=== PATIENT | male | born 1960 | race Native Hawaiian/Other Pacific Islander ===

== ENCOUNTER → 2017-09-26 | Outpatient (CLI) | payer MEDICARE ==
--- NOTE | 2017-09-26 15:45 | XR ---
EXAMINATION TYPE: XR shoulder complete RT DATE OF EXAM: 09/26/2017 CLINICAL HISTORY: Right shoulder pain after injury. TECHNIQUE: Three views of the right shoulder are obtained. COMPARISON: None. FINDINGS: There is no acute fracture/dislocation evident in the right shoulder. The acromioclavicul ar and glenohumeral joint spaces appear within normal limits. The visualized ribs are intact and unr emarkable. IMPRESSION: There is no acute fracture or dislocation in the right shoulder.
== END | disposition home or self-care (01) ==
LOC: RADXRYALE 14:49
PROVIDERS: ATTEND Physician Assistant Medical
DX: M25.511 Pain in right shoulder (principal)

== ENCOUNTER 2019-02-25 12:25 | Observation (INO) | payer MEDICARE, OTHER ==
[2019-02-25] MEDS ORDERED: NITROGLYCERIN OINT 1 INCH/GM PACKET TOPICAL STA (12:32)
[2019-02-25] MEDS ORDERED: HEPARIN SODIUM,PORCINE 5,000 UNIT/ML 1 ML VIAL IV STA (12:32)
--- NOTE | 2019-02-25 12:40 | ED ---
Chest Pain HPI - General Stated Complaint: CHEST PAIN Time Seen by Provider: 02/25/19 12:25 Source: patient, EMS, RN notes reviewed, old records reviewed Mode of arrival: EMS Limitations: no limitations - History of Present Illness Initial Comments: This is a 58-year-old male with a history of prior heart disease with a stent who over the past 2 weeks is been having intermittent episodes of discomfort and numbness to his left arm who had the onset at 10:30 this morning of retrosternal chest pain and pressure tightness he also described it as 5/10 severity he also has some numbness and tingling going down his left arm and to his left neck and jaw area. He was seen in his doctor's office and was given 2 nitroglycerin there without much relief EMS was called he was given 324 aspirin as well as additional nitroglycerin with some improvement. He has some shortness of breath some sweating no nausea vomiting or other symptoms. No recent illnesses no cough or phlegm production. Patient is a smoker he states he is down to about one half pack per day he is trying to quit. MD Complaint: chest pain - Related Data Home Medications Medication Instructions Recorded Confirmed Atorvastatin [Lipitor] 40 mg PO HS 11/08/17 02/25/19 Aspirin EC [Ecotrin Low Dose] 81 mg PO HS 02/25/19 02/25/19 Vitamin E 1,000 unit PO HS 02/25/19 02/25/19 Allergies Allergy/AdvReac Type Severity Reaction Status Date / Time No Known Allergies Allergy Verified 02/25/19 13:03 Review of Systems ROS Statement: Those systems with pertinent positive or pertinent negative responses have been documented in the HPI. ROS Other: All systems not noted in ROS Statement are negative. Past Medical History Past Medical History: Coronary Artery Disease (CAD), Hyperlipidemia, Myocardial Infarction (MD) Additional Past Medical History / Comment(s): Recent sinusitis tx with ABX-has one more dose to go, 2011 fell out of bed and had cervical spinal cord injury/closed head injury with temporary paralysis-has had neuropathy neck to toes since and memory issues especially when ill. Last Myocardial Infarction Date:: 2012 History of Any Multi-Drug Resistant Organisms: None Reported Past Surgical History: Back Surgery, Heart Catheterization With Stent Additional Past Surgical History / Comment(s): Cervical fusion, PCI/stent, 2014 colonoscopy with polypectomy, L hand pinky finger with pin, cyst removed from back of neck. Past Anesthesia/Blood Transfusion Reactions: No Reported Reaction Date of Last Stent Placement:: 2012 Past Psychological History: Anxiety, Depression Smoking Status: Former smoker - Past Family History Mother Family Medical History: Diabetes Mellitus Additional Family Medical History / Comment(s): Mother at the age of 75yrs. Father Family Medical History: Myocardial Infarction (MD) Additional Family Medical History / Comment(s): Father of a MD at the age of 75yrs. General Exam - General Exam Comments Initial Comments: This is a well-developed well-nourished awake alert oriented times 3 male Limitations: no limitations General appearance: alert, anxious Head exam: Present: atraumatic, normocephalic, normal inspection Eye exam: Present: normal appearance, PERRL, EOMI. Absent: scleral icterus, conjunctival injection, periorbital swelling ENT exam: Present: normal exam, mucous membranes moist Neck exam: Present: normal inspection. Absent: tenderness, meningismus, lympha denopathy Respiratory exam: Present: normal lung sounds bilaterally. Absent: respiratory distress, wheezes, rales, rhonchi, stridor Cardiovascular Exam: Present: normal rhythm, bradycardia, normal heart sounds. Absent: systolic murmur, diastolic murmur, rubs, gallop, clicks GI/Abdominal exam: Present: soft, normal bowel sounds. Absent: distended, tenderness, guarding, rebound, rigid Extremities exam: Present: normal inspection, full ROM, normal capillary refill. Absent: tenderness, pedal edema, joint swelling, calf tenderness Back exam: Present: normal inspection Neurological exam: Present: alert, oriented X3, CN II-XII intact Psychiatric exam: Present: normal affect, normal mood Skin exam: Present: warm, dry, intact, normal color. 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 Monitor showed a heart rate of 60 with a normal sinus rhythm no evidence of atrial or ventricular abnormal activity. Reevaluation #2: 02/25/19 14:23 Reevaluation patient on further chest discomfort since treatment was started. Is presently did discuss findings with her as well as with the patient. Chest Pain MDM - MDM Imaging was reviewed no evidence of acute findings. I did discuss findings the patient has regarding findings also with Dr. carrasco. Patient will be admitted for evaluation by cardiology the presentation is consistent with acute coronary syndrome/unstable angina. The case is discussed with Dr. Ghotra Critical Care Time Critical Care Time: Yes Critical Care Time: 32 minutes of critical care time which includes initial presentation with history physical labs x-rays multiple re-evaluations patient response to therapy this also did include discussed with paramedics about the patient and discussion with the admitting physician Dr. carrasco discussed with cardiology Dr. Ghotra review of old charting and documentation the above Disposition Clinical Impression: Acute coronary syndrome, Unstable angina pectoris, Chest pain Disposition: ADMITTED IP TO THIS HOSP Condition: Stable Referrals: Dean Payne DO [Primary Care Provider] - 1-2 days
[2019-02-25] MEDS ORDERED: HEPARIN SOD,PORK IN 0.45% NACL 25,000 UNIT in 0.45% NACL 1 250ML.BAG IV SCH (12:45)
[2019-02-25 12:54] LABS: Basophils # (A) 0.1 k/uL (0-0.2); Basophils % (A) 1 %; Eosinophils # (A) 0.3 k/uL (0-0.7); Eosinophils % (A) 3 %; HCT 48.2 % (39.0-53.0); Lymphocytes # (A) 2.9 k/uL (1.0-4.8); Lymphocytes % (A) 30 %; MCH 29.7 pg (25.0-35.0); MCHC 33.2 g/dL (31.0-37.0); MCV 89.4 fL (80.0-100.0); Mean Platelet Volume 6.5; Monocytes # (A) 0.6 k/uL (0-1.0); Monocytes % (A) 6 %; Neutrophils # (A) 5.7 k/uL (1.3-7.7); Neutrophils % (A) 59 %; Platelet Count 287 k/uL (150-450); RBC 5.39 m/uL (4.30-5.90); RDW 13.4 % (11.5-15.5); WBC 9.6 k/uL (3.8-10.6)
[2019-02-25] MEDS: SODIUM CHLORIDE 0.9% 500 ML 500 ML IV SCH (13:02)
[2019-02-25 13:09] LABS: Albumin 4.2 g/dL (3.5-5.0); Calcium 9.3 mg/dL (8.4-10.2); Magnesium 2.1 mg/dL (1.6-2.3); Potassium 4.7 mmol/L (3.5-5.1); Total Bilirubin 0.4 mg/dL (0.2-1.3); Total Protein 6.8 g/dL (6.3-8.2)
[2019-02-25 13:10] LABS: D-Dimer <0.17 mg/L FEU (<0.60); INR 0.9 (<1.2); Partial Thromboplastin Time 24.1 sec (22.0-30.0); Prothrombin Time 10.1 sec (9.0-12.0)
--- NOTE | 2019-02-25 13:13 | XR ---
EXAMINATION TYPE: XR chest 2V DATE OF EXAM: 02/25/2019 COMPARISON: 01/02/2012 INDICATION: Chest pain left arm tingling TECHNIQUE: Frontal and lateral views of the chest are obtained. FINDINGS: The heart size is normal. The pulmonary vasculature is normal. The lungs are clear. IMPRESSION: 1. No acute pulmonary process.
[2019-02-25] MEDS ORDERED: ACETAMINOPHEN TAB 325 MG TAB PO STA (14:18)
[2019-02-25] MEDS ORDERED: NITROGLYCERIN SL TABS 0.4 MG TAB SUBLINGUAL PRN (14:29)
--- NOTE | 2019-02-25 15:33 | P.HPIM ---
History of Present Illness Patient is a very pleasant 58-year-old gentleman came in with complaints of left arm tingling numbness started when he was sitting on the chair nonexertional followed by chest pain pressure-like sensation 5/10 in severity associated with diaphoresis and his pain radiating to the left side of the neck as well as jaw area. Patient had pericardial chest pain on the left side patient has associated lightheadedness and some shortness of breath to cut 2 nitroglycerin without any significant improvement in pain, pain lasted for about half an hour patient any fever chills patient had a Chest x-ray did not show any pneumonic process EKG showed some nonspecific ST-T wave changes in the precordial leads with some J-point elevation. Patient's troponin is negative. Sinus rhythm on EKG. Patient does have history of coronary artery disease had stenting in 2014 and patient has another vessel that was blocked about 65% and patient is on aspirin and atorvastatin. Patient chest pain is nonpleuritic in nature not associated with food Patient can use to smoke half a pack a day trying to quit smoking Review of Systems REVIEW OF SYSTEMS: CONSTITUTIONAL: No fever, no malaise, no fatigue. HEENT: No recent visual problems or hearing problems. Denied any sore throat. CARDIOVASCULAR: No orthopnea, PND, no palpitations, no syncope. PULMONARY: No shortness of breath, no cough, no hemoptysis. GASTROINTESTINAL: No diarrhea, no nausea, no vomiting, no abdominal pain. NEUROLOGICAL: No headaches, no weakness, no numbness. HEMATOLOGICAL: Denies any bleeding or petechiae. GENITOURINARY: Denies any burning micturition, frequency, or urgency. MUSCULOSKELETAL/RHEUMATOLOGICAL: Denies any joint pain, swelling, or any muscle pain. ENDOCRINE: Denies any polyuria or polydipsia. The rest of the 14-point review of systems is negative. Past Medical History Past Medical History: Coronary Artery Disease (CAD), Hyperlipidemia, Myocardial Infarction ([place]) Additional Past Medical History / Comment(s): 2011 fell out of bed and had cervical spinal cord injury/closed head injury with temporary paralysis-has had generalized neuropathy since and memory issues especially when ill, chronic cervical pain, occasional back pain, sinusitis. Last Myocardial Infarction Date:: 2012 History of Any Multi-Drug Resistant Organisms: None Reported Past Surgical History: Back Surgery, Heart Catheterization With Stent Additional Past Surgical History / Comment(s): Cervical fusion, PCI/stent and was told another coronary artery was 65% occluded at that time, 2013 colonoscopy with polypectomy, L hand pinky finger with pin, cyst removed from back of neck. Past Anesthesia/Blood Transfusion Reactions: No Reported Reaction Date of Last Stent Placement:: 2012 Smoking Status: Current every day smoker - Past Family History Mother Family Medical History: Diabetes Mellitus Additional Family Medical History / Comment(s): Mother at the age of 75yrs. Father Family Medical History: Myocardial Infarction (NC) Additional Family Medical History / Comment(s): Father of a NC at the age of 75yrs. Medications and Allergies Home Medications Medication Instructions Recorded Confirmed Type Atorvastatin [Lipitor] 40 mg PO HS 11/08/17 02/25/19 History Aspirin EC [Ecotrin Low Dose] 81 mg PO HS 02/25/19 02/25/19 History Vitamin E 1,000 unit PO HS 02/25/19 02/25/19 History Allergies Allergy/AdvReac Type Severity Reaction Status Date / Time No Known Allergies Allergy Verified 02/25/19 13:03 Physical Exam Vitals: Vital Signs Temp Pulse Pulse Pulse Resp BP BP 02/25/19 15:20 97.7 F 63 18 117/76 02/25/19 14:33 59 L 16 120/94 02/25/19 13:39 56 L 16 129/86 02/25/19 12:37 57 L 02/25/19 12:30 97.9 F 58 L 16 122/98 Pulse Ox 02/25/19 15:20 96 02/25/19 14:33 97 02/25/19 13:39 97 02/25/19 12:37 02/25/19 12:30 98 Intake and Output 02/25/19 02/25/19 02/25/19 06:59 14:59 22:59 Other: Weight 92.986 kg PHYSICAL EXAMINATION: GENERAL: The patient is alert and oriented x3, not in any acute distress. Well developed, well nourished. HEENT: Pupils are round and equally reacting to light. EOMI. No scleral icterus. No conjunctival pallor. Normocephalic, atraumatic. No pharyngeal erythema. No thyromegaly. CARDIOVASCULAR: S1 and S2 present. No murmurs, rubs, or gallops. PULMONARY: Chest is clear to auscultation, no wheezing or crackles. ABDOMEN: Soft, nontender, nondistended, normoactive bowel sounds. No palpable organomegaly. MUSCULOSKELETAL: No joint swelling or deformity. EXTREMITIES: No cyanosis, clubbing, or pedal edema. NEUROLOGICAL: Gross neurological examination did not reveal any focal deficits. SKIN: No rashes. Results CBC & Chem 7: 02/25/19 12:35 02/25/19 12:35 Thrombosis Risk Factor Assmnt - Choose All That Apply Any of the Below Risk Factors Present?: Yes Each Factor Represents 1 point: Age 41-60 years, Obesity (BMI >25) Other Risk Factors: No Other congenital or acquired thrombophilia - If yes, enter type in comment: No Thrombosis Risk Factor Assessment Total Risk Factor Score: 2 Thrombosis Risk Factor Assessment Level: Low Risk Assessment and Plan Plan: -Chest pain possibly of unstable angina, continue with IV heparin patient does have typical chest pain patient may benefit from a cardiac catheterization cardiology will be consulted to what sets of troponins will be obtained along with EKGs. Continue with atorvastatin and aspirin. Patient's heart rate is in 50s on because of which I'm not starting him on beta jack. -Coronary artery disease -Hyperlipidemia -Nicotine abuse: Counseling was provided
--- NOTE | 2019-02-25 15:37 | ED ---
Medical Decision Making - Lab Data Result diagrams: 02/25/19 12:35 02/25/19 12:35 Lab Results 02/25/19 02/25/19 02/25/19 Range/Units 12:35 12:35 12:35 WBC 9.6 (3.8-10.6) k/uL RBC 5.39 (4.30-5.90) m/uL Hgb 16.0 (13.0-17.5) gm/dL Hct 48.2 (39.0-53.0) % MCV 89.4 (80.0-100.0) fL MCH 29.7 (25.0-35.0) pg MCHC 33.2 (31.0-37.0) g/dL RDW 13.4 (11.5-15.5) % Plt Count 287 (150-450) k/uL Neutrophils % 59 % Lymphocytes % 30 % Monocytes % 6 % Eosinophils % 3 % Basophils % 1 % Neutrophils # 5.7 (1.3-7.7) k/uL Lymphocytes # 2.9 (1.0-4.8) k/uL Monocytes # 0.6 (0-1.0) k/uL Eosinophils # 0.3 (0-0.7) k/uL Basophils # 0.1 (0-0.2) k/uL PT 10.1 (9.0-12.0) sec INR 0.9 (<1.2) APTT 24.1 (22.0-30.0) sec D-Dimer <0.17 (<0.60) mg/L FEU Sodium 140 (137-145) mmol/L Potassium 4.7 (3.5-5.1) mmol/L Chloride 107 (98-107) mmol/L Carbon Dioxide 26 (22-30) mmol/L Anion Gap 7 mmol/L BUN 9 (9-20) mg/dL Creatinine 1.07 (0.66-1.25) mg/dL Est GFR (CKD-EPI)AfAm 88 (>60 ml/min/1.73 sqM) Est GFR (CKD-EPI)NonAf 76 (>60 ml/min/1.73 sqM) Glucose 97 (74-99) mg/dL Calcium 9.3 (8.4-10.2) mg/dL Magnesium 2.1 (1.6-2.3) mg/dL Total Bilirubin 0.4 (0.2-1.3) mg/dL AST 23 (17-59) U/L ALT 40 (21-72) U/L Alkaline Phosphatase 70 (38-126) U/L Creatine Kinase 93 (55-170) U/L Troponin I (0.000-0.034) ng/mL NT-Pro-B Natriuret Pep pg/mL Total Protein 6.8 (6.3-8.2) g/dL Albumin 4.2 (3.5-5.0) g/dL Amylase 70 (30-110) U/L Lipase 139 (23-300) U/L 02/25/19 02/25/19 Range/Units 12:35 12:35 WBC (3.8-10.6) k/uL RBC (4.30-5.90) m/uL Hgb (13.0-17.5) gm/dL Hct (39.0-53.0) % MCV (80.0-100.0) fL MCH (25.0-35.0) pg MCHC (31.0-37.0) g/dL RDW (11.5-15.5) % Plt Count (150-450) k/uL Neutrophils % % Lymphocytes % % Monocytes % % Eosinophils % % Basophils % % Neutrophils # (1.3-7.7) k/uL Lymphocytes # (1.0-4.8) k/uL Monocytes # (0-1.0) k/uL Eosinophils # (0-0.7) k/uL Basophils # (0-0.2) k/uL PT (9.0-12.0) sec INR (<1.2) APTT (22.0-30.0) sec D-Dimer (<0.60) mg/L FEU Sodium (137-145) mmol/L Potassium (3.5-5.1) mmol/L Chloride (98-107) mmol/L Carbon Dioxide (22-30) mmol/L Anion Gap mmol/L BUN (9-20) mg/dL Creatinine (0.66-1.25) mg/dL Est GFR (CKD-EPI)AfAm (>60 ml/min/1.73 sqM) Est GFR (CKD-EPI)NonAf (>60 ml/min/1.73 sqM) Glucose (74-99) mg/dL Calcium (8.4-10.2) mg/dL Magnesium (1.6-2.3) mg/dL Total Bilirubin (0.2-1.3) mg/dL AST (17-59) U/L ALT (21-72) U/L Alkaline Phosphatase (38-126) U/L Creatine Kinase (55-170) U/L Troponin I <0.012 (0.000-0.034) ng/mL NT-Pro-B Natriuret Pep 64 pg/mL Total Protein (6.3-8.2) g/dL Albumin (3.5-5.0) g/dL Amylase (30-110) U/L Lipase (23-300) U/L Disposition Clinical Impression: Acute coronary syndrome, Unstable angina pectoris, Chest pain Disposition: ADMITTED IP TO THIS [facility] Condition: Stable Procedures - Smoking Cessation Time Spent Discussing Smoking Cessation w/Patient (Minutes): 3 Patient Acknowledges Need for Cessation: Yes
--- NOTE | 2019-02-25 17:42 | CONS ---
CONSULTATION CHIEF COMPLAINT: Chest pain. Mr. Oliveira is a 58-year-old gentleman with history of coronary artery disease, status post angioplasty about 12 or 15 years ago. Comes to the hospital complaining of chest pain. He had a late breakfast and subsequent after that had an episode of chest pain that he describes as chest pressure that radiated to both arms, was associated with some diaphoresis and shortness of breath. He took a sublingual nitroglycerin and subsequently became dizzy and unwell and came to the ER where with intravenous heparin and nitrates, aspirin, statin he is chest pain free. EKG shows sinus rhythm without acute ST-T wave changes. The first set of troponins is negative. His creatinine is normal at 1. Patient has typical symptoms of unstable angina and I advised him to undergo cardiac catheterization which will be done tomorrow morning. PAST MEDICAL HISTORY: Significant for coronary artery disease, status post angioplasty. MEDICATIONS: Include aspirin and Lipitor. ALLERGIES: There are no known drug allergies. FAMILY HISTORY: Negative for premature coronary artery disease. SOCIAL HISTORY: Significant for smoking. There is no history of EtOH abuse or drug abuse. REVIEW OF SYSTEMS: HEENT is unremarkable. Cardiac as described above. Respiratory negative. GI negative. Genitourinary: Negative. Allergy/Immunology: Negative. Skin negative. Musculoskeletal negative. Endocrine negative. Constitutional negative. Oncological negative. Rest of the systems review is not relevant. EXAM: Comfortable at rest. Vital signs are stable. There is no jugular venous distention. Carotid upstroke is normal. There is no bruit. Chest exam reveals good air entry bilaterally. Heart exam reveals first and second heart sounds. No gallop. No murmur. No rub. Abdomen is soft, nontender. Exam of extremities did not reveal edema. Peripheral pulses are felt. ASSESSMENT: Unstable angina. PLAN: Patient will be treated with aspirin, heparin and statins. Start on beta blockers. Heart rate is over 60. Continue the statin. The patient will be scheduled for a cardiac catheterization tomorrow. MMODL / IJN: [id number] /
[2019-02-25] MEDS: ACETAMINOPHEN TAB 325 MG TAB PO PRN (19:15)
[2019-02-25] MEDS ORDERED: HEPARIN SODIUM,PORCINE 5,000 UNIT/ML 1 ML VIAL IV PRN (20:57)
[2019-02-25] MEDS: ATORVASTATIN 40 MG TAB PO SCH (21:05)
[2019-02-25] MEDS: VITAMIN E (DL,TOCOPHERYL ACET) 400 UNIT CAP PO SCH (21:23)
[2019-02-25 23:18] LABS: Cholesterol 150 mg/dL (<200); HDL Cholesterol 28 mg/dL (40-60); LDL Cholesterol,Calculated 53 mg/dL (0-99); Triglycerides 346 mg/dL (<150)
[2019-02-26] MEDS ORDERED: SODIUM CHLORIDE 0.9% 1,000 ML in EMPTY BAG 1 BAG IV ONE (08:05)
[2019-02-26] MEDS ORDERED: ALPRAZolam 0.25 MG TAB PO PRN (08:05)
[2019-02-26] MEDS: METOPROLOL TARTRATE 12.5 MG TAB PO SCH ×2 (08:29→20:02)
[2019-02-26] MEDS: ASPIRIN 325 MG TAB PO SCH (08:29)
[2019-02-26] MEDS: ALPRAZolam 0.5 MG TAB PO PRN ×3 (08:38→20:02)
--- NOTE | 2019-02-26 08:56 | P.PN ---
Subjective This is a pleasant 58-year-old male past medical history significant for coronary artery disease status post stent placement in 2012 at [facility]. He states at that time he was also told he had a 60-65% blockage in another vessel. He also has dyslipidemia and unfortunately continues to smoke. He is seen and examined resting comfortably lying flat in bed in no acute distress. He denies any further symptoms of chest discomfort, shortness of breath, dizziness, palpitations, nausea, vomiting or diaphoresis. Cardiac enzymes are negative 3. Blood pressure 120/74 heart rate 62 afebrile maintaining oxygen saturation on room air. Heparin infusion ongoing. GENERAL: Well-appearing, well-nourished and in no acute distress. NECK: Supple without JVD or thyromegaly. LUNGS: Breath sounds clear to auscultation bilaterally. Respiration equal and unlabored. No wheezes, rales or rhonchi. Diminished bilaterally. HEART: Regular rate and rhythm without murmurs, rubs or gallops. S1 and S2 heard. EXTREMITIES: Normal range of motion, no edema. No clubbing or cyanosis. Peripheral pulses intact. ASSESSMENT Unstable angina History of coronary artery disease status post stent placement 2012 Dyslipidemia Chronic nicotine dependence PLAN Proceed with cardiac catheterization with his primary main galley scullion Dr. Olivares today around 9 AM. Questions have been answered appropriately to the patient and his . Obtain 2-D echocardiogram and Doppler study to assess cardiac structure and function. Initiate on small dose of beta jack 12.5 mg twice a day. Further recommendations to follow based upon clinical course. Nurse Practitioner note has been reviewed, I agree with a documented findings and plan of care. Patient was seen and examined. Objective - Vital Signs Vital signs: Vital Signs Temp 97.6 F 02/26/19 07:05 Pulse 62 02/26/19 07:05 Resp 18 02/26/19 07:05 BP 120/74 02/26/19 07:05 Pulse Ox 98 02/26/19 07:05 Intake & Output 02/25/19 02/26/19 02/26/19 18:59 06:59 18:59 Intake Total 240 82 Balance 240 82 Weight 92.986 kg Intake: Intake, IV Titration 82 Amount Heparin Sod,Pork in 0.45% 82 NaCl 25,000 unit In 0.45 % NaCl 1 250ml.bag @ 10. 754 UNITS/KG/HR 10 mls/hr IV .Q24H [facility] Rx#: [id number] Oral 240 Other: Voiding Method Toilet Toilet # Voids 2 - Labs CBC & Chem 7: 02/25/19 12:35 02/25/19 12:35 Labs: Abnormal Lab Results - Last 24 Hours (Table) 02/25/19 02/25/19 02/26/19 Range/Units 13:25 18:40 01:50 APTT 32.6 H 48.8 H (22.0-30.0) sec Triglycerides 346 H (<150) mg/dL HDL Cholesterol 28 L (40-60) mg/dL
[2019-02-26] MEDS ORDERED: LIDOCAINE 1% INJ 10MG/ML (20 ML MDV) ONE ×2 (08:58→09:51)
[2019-02-26] MEDS ORDERED: VERAPAMIL 2.5 MG/ML 2 ML AMP ONE (08:58)
[2019-02-26] MEDS ORDERED: HEPARIN SODIUM 1,000 UN/ML (10ML VL) ONE (08:59)
[2019-02-26] MEDS ORDERED: fentaNYL (PF) 50 MCG/ML 2 ML AMP ONE (08:59)
[2019-02-26] MEDS: fentaNYL (PF) 50 MCG/ML 2 ML AMP IVP ONE ×2 (09:12→09:41)
[2019-02-26] MEDS: MIDAZOLAM 2 MG/2 ML VIAL IVP ONE ×2 (09:12→09:41)
[2019-02-26] MEDS ORDERED: LIDOCAINE 1% INJ 10MG/ML (20 ML MDV) SQ ONE (09:18)
[2019-02-26] MEDS: NITROGLYCERIN 1000MCG/10ML SYRINGE INTRACORON ONE ×3 (09:26→09:49)
[2019-02-26] MEDS ORDERED: BIVALIRUDIN BOLUS 250 MG/50 ML IV ONE (09:40)
[2019-02-26] MEDS ORDERED: BIVALIRUDIN 250 MG in SODIUM CHLORIDE 0.9% 36 ML IV ONE (09:41)
[2019-02-26] MEDS ORDERED: IV FLUID CONTINUATION 900 ML IV ONE (09:42)
[2019-02-26] MEDS ORDERED: CLOPIDOGREL 75 MG TAB ONE (09:43)
[2019-02-26] MEDS ORDERED: CLOPIDOGREL 75 MG TAB PO ONE (09:49)
[2019-02-26] MEDS ORDERED: IOPAMIDOL-370 100ML BTL INJ ONE ×2 (09:50)
[2019-02-26] MEDS ORDERED: HYDROmorphone 2 MG/ML 1 ML SYRINGE IV ONE (09:50)
[2019-02-26] MEDS ORDERED: MAG HYDROX/AL HYDROX/SIMETH 30 ML CUP PO PRN (09:59)
[2019-02-26] MEDS ORDERED: NITROGLYCERIN SL TABS 0.4 MG TAB SUBLINGUAL PRN (09:59)
[2019-02-26] MEDS ORDERED: ATROPINE SULFATE 0.1 MG/ML 10ML SYRINGE IV PRN (09:59)
[2019-02-26] MEDS ORDERED: RX INFO: IV CONTRAST WAS GIVEN 1 EACH MISC MISCELLANE PRN (09:59)
[2019-02-26] MEDS ORDERED: ZOLPIDEM 5 MG TAB PO PRN (09:59)
[2019-02-26] MEDS ORDERED: SODIUM CHLORIDE 0.9% 1,000 ML IV SCH (10:00)
--- NOTE | 2019-02-26 10:01 | P.CARDCATH ---
Date of Procedure: 02/26/19 Preoperative Diagnosis: Unstable angina Postoperative Diagnosis: Critical lesion involving the OM branch within the stented area Procedure(s) Performed: Left heart catheterization without left ventriculography Description of Procedure: HISTORY: This is a 58-year-old gentleman with history of ischemic heart disease and previous stent placement who was admitted to the hospital with the left arm and chest discomfort and numbness. His EKGs and cardiac enzymes are negative. Patient is advised to have a cardiac catheterization for definitive diagnosis. CONSENT:I have discussed the risks, benefits and alternative therapies for the above-mentioned procedure and for both sedation/analgesia as well as necessary blood product administration, if indicated, as they pertain to this patient. The patient has indicated understanding and acceptance of the risks and procedures discussed. PROCEDURE: Patient was brought to the lab in a fasting state. Patient was given some IV sedation. The right groin is infiltrated with lidocaine and right femoral artery was entered using Seldinger technique. A 6-Stateless catheter was left in place and selective coronary arteriography was performed. Patient tolerated the procedure well. Femoral angiogram was performed . No immediate complications were noted and patient went on to have stent placement of the circumflex OM branch by Drs. Koroma. Conscious Sedation: Versed1 mg Fentanyl 50 g Duration 17minutes HEMODYNAMICS: The aortic pressure is 117/80. Left ventricular end-diastolic pressure is about 8. No gradient across the aortic valve SELECTIVE CORONARY ARTERIOGRAPHY: LEFT MAIN: Normal length and free of any occlusive disease THE LEFT ANTERIOR DESCENDING CORONARY ARTERY:. This is a moderate caliber vessel giving rise to good-sized diagonal branch. The LAD had a of lesion at the origin of the first septal branch. It appears to be about 50-60%. May consider doing a stress test to establish with his any is chemia in the LAD distribution. THE LEFT CIRCUMFLEX AND IS CORONARY ARTERY:. This is a good caliber vessel giving rise to good-sized 2 OM branches. The distal OM branch has about 80% stenosis involving the distal aspect of the stent. The first OM branch also has about 50-60% stenosis at the origin. THE RIGHT CORONARY ARTERY: This is a moderate caliber vessel and dominant in distribution. It has PDA and PLV. There is mild diffuse plaque throughout the RCA without any critical lesions LEFT VENTRICULOGRAPHY: Not performed FINAL IMPRESSION: Critical lesion within the stented area of the distal circumflex with 80% stenosis PLAN: Stent placement of the circumflex being done by Dr. Melchor. Patient will be subsequently evaluated by stress test to rule out any ischemia in the LAD distribution PROGNOSIS: Fair
[2019-02-26 10:18] LABS: Glucose,Whole Blood 100 mg/dL (75-99)
--- NOTE | 2019-02-26 10:37 | PTCA ---
PERCUTANEOUSTRANS CORORONARY ANGIOGRAPHY DATE OF SERVICE: 02/26/2019 PERFORMING PHYSICIAN: Oswaldo Koroma MD, Pump Machine Operator. PROCEDURE PERFORMED: Successful stenting of the OM2 of left circumflex using 2.5 x 15 mm Xience drug-eluting stent with an excellent angiographic results. INDICATION: This is a 58-year-old gentleman with known history of coronary artery disease who underwent stenting of OM2 in the past, out of town. who presented to the hospital with chest discomfort concerning for angina. He underwent a heart catheterization by Dr. Olivares and was found to have severe disease in-stent restenosis involving OM2. Because of that, percutaneous coronary intervention was advised. APPROACH: Right common femoral artery. COMPLICATION: None. LEVEL OF SEDATION: Moderate with A sedation length of 22 minutes. PROCEDURE DESCRIPTION: Please refer to diagnostic heart catheterization that was performed by Dr. Olivares. Anticoagulation was initiated using Angiomax. Subsequently. I did engage the left main using XB3.5 guide. A whisper wire was used to wire OM2. I did PTCA ballooning using x 2.5 x 12 mm balloon before I deployed 2.5 x 15 mm Xience drug-eluting stent where the stent was positioned under fluoroscopy guidance. Then it was deployed under 12 atmospheres for 20 seconds with the following angiogram showing excellent angiographic results and the procedure was completed without any complication. Hemostasis was achieved using the Perclose device. POSTPROCEDURE MANAGEMENT: 1. Dual anti-platelet therapy. 2. Risk factors modifications. 3. Follow up with the patient. MMODL / JWN: [id number] /
[2019-02-26] MEDS: SODIUM CHLORIDE 0.9% 500 ML 500 ML IV SCH (13:39)
[2019-02-26 14:46] VITALS: BMI 31.1
[2019-02-26] MEDS: ACETAMINOPHEN TAB 325 MG TAB PO PRN (20:01)
[2019-02-26] MEDS: ATORVASTATIN 40 MG TAB PO SCH (20:02)
[2019-02-26] MEDS: VITAMIN E (DL,TOCOPHERYL ACET) 400 UNIT CAP PO SCH (22:02)
[2019-02-27] MEDS: ALPRAZolam 0.5 MG TAB PO PRN (06:56)
[2019-02-27] MEDS: ACETAMINOPHEN TAB 325 MG TAB PO PRN (06:56)
--- NOTE | 2019-02-27 07:04 | ECHOF ---
Referral Reason:cp MEASUREMENTS -------- HEIGHT: 172.7 cm WEIGHT: 93.0 kg BP: 120/74 RVIDd: 2.7 cm (< 3.3) IVSd: 1.3 cm (0.6 - 1.1) LVIDd: 4.1 cm (3.9 - 5.3) LVPWd: 1.3 cm (0.6 - 1.1) IVSs: 1.7 cm LVIDs: 2.6 cm LVPWs: 1.7 cm LA Diam: 3.1 cm (2.7 - 3.8) LAESV Index (A-L): 25.32 ml/m Ao Diam: 3.2 cm (2.0 - 3.7) AV Cusp: 2.2 cm (1.5 - 2.6) EPSS: 0.6 cm MV E Juan Alberto: 0.93 m/s MV DecT: 200 ms MV A Juan Alberto: 0.75 m/s MV E/A Ratio: 1.24 MV EF SLOPE: 102.58 mm/s (70 - 150) MV EXCURSION: 1.82 cm (> 18.000) FINDINGS -------- Sinus rhythm. This was a technically adequate study. The left ventricular size is normal. There is mild concentric left ventricular hypertrophy. Overa ll left ventricular systolic function is normal with, an EF between 55 - 60 %. The right ventricle is normal in size. Normal LA size by volume 22+/-6 ml/m2. The right atrium is normal in size. Aortic valve is trileaflet and is mildly thickened. Mild mitral annular calcification present. There is trace mitral regurgitation. The tricuspid valve appears structurally normal. Trace/mild (physiologic) pulmonic regurgitation. The aortic root size is normal. IVC Not well visulized. There is no pericardial effusion. CONCLUSIONS -------- 1. Sinus rhythm. 2. This was a technically adequate study. 3. The left ventricular size is normal. 4. There is mild concentric left ventricular hypertrophy. 5. Overall left ventricular systolic function is normal with, an EF between 55 - 60 %. 6. The right ventricle is normal in size. 7. Normal LA size by volume 22+/-6 ml/m2. 8. The right atrium is normal in size. 9. Aortic valve is trileaflet and is mildly thickened. 10. Mild mitral annular calcification present. 11. There is trace mitral regurgitation. 12. The tricuspid valve appears structurally normal. 13. Trace/mild (physiologic) pulmonic regurgitation. 14. The aortic root size is normal. 15. IVC Not well visulized. 16. There is no pericardial effusion. TRANSMISSION AND COORDINATION ENGINEER: BLANKA Dickson
[2019-02-27] MEDS ORDERED: CLOPIDOGREL 75 MG TAB PO SCH (09:00)
[2019-02-27] MEDS: METOPROLOL TARTRATE 12.5 MG TAB PO SCH (10:02)
[2019-02-27] MEDS: ASPIRIN 325 MG TAB PO SCH (10:02)
[2019-02-27 10:26] VITALS: RESP 16
[2019-02-27 11:56] VITALS: BP 107/62; PULSE 56; TEMP 98.1
--- NOTE | 2019-02-27 12:31 | P.PN ---
Subjective Progress Note Date: 02/27/19 This is a 58-year-old gentleman with history of coronary artery disease and prior angioplasty approximately 15 years ago who presented to the hospital with symptoms of chest discomfort. He was advised to undergo cardiac catheterization which was performed yesterday by Dr. Olivares. Cardiac catheterization revealed a critical lesion within the stented area of the distal circumflex with 80% stenosis, subsequently patient underwent stenting of the circumflex by Dr. Melchor. He was seen and examined this morning, denies any chest pain or difficulty in breathing. Hemodynamically he is stable. EKG shows normal sinus rhythm with no changes from post-PCI. Objective - Vital Signs Vital signs: Vital Signs Temp 98.1 F 02/27/19 11:50 Pulse 56 L 02/27/19 11:50 Resp 16 02/27/19 11:50 BP 107/62 02/27/19 11:50 Pulse Ox 96 02/27/19 11:50 Intake & Output 02/26/19 02/27/19 02/27/19 18:59 06:59 18:59 Intake Total 1296 480 240 Output Total 400 Balance 896 480 240 Weight 92.986 kg 93.3 kg Intake: IV 976 Sodium Chloride 0.9% 1, 600 000 ml @ 75 mls/hr IV . [id number] Rx#:[id number] Oral 320 480 240 Output: Urine 400 Other: Voiding Method Toilet # Voids 1 - Exam PHYSICAL EXAMINATION: GENERAL: 58-year-old gentleman in no acute distress at the time of my examination HEENT: Head is atraumatic, normocephalic. Pupils equal, round. Sclera anicteric. Conjunctiva are clear. Mucous membranes of the mouth are moist. Neck is supple. There is no elevated jugular venous pressure. No carotid bruit is heard. HEART EXAMINATION: Heart S1, S2 normal. No murmur or gallop heard. CHEST EXAMINATION: Lungs are clear to auscultation and precussion. No chest wall tenderness is noted on palpation or with deep breathing. ABDOMEN: Soft, nontender. Bowel sounds are heard. No organomegaly noted. EXTREMITIES: 2+ peripheral pulses with no evidence of peripheral edema and no calf tenderness noted. Right groin soft, no evidence of any hematoma. NEUROLOGIC patient is awake, alert and oriented 3 . . - Labs CBC & Chem 7: 02/25/19 12:35 02/27/19 06:22 Assessment and Plan Plan: Assessment and plan #1 status post angioplasty with stenting of the circumflex artery #2 known history of coronary artery disease with prior stent placement in the circumflex artery #3 hyperlipidemia #4 chronic nicotine dependence Plan Patient may be able to be discharged home today from cardiology's perspective. We will make a follow-up appointment in the office with Dr. Olivares post discharge. Patient will be subsequently evaluated by stress test to rule out any ischemia in the LAD distribution as an outpatient. Discharge medications include aspirin 81 mg daily, Lipitor 40 mg daily, Plavix 75 mg daily, metoprolol 12-1/2 mg twice a day, sublingual nitroglycerin as needed for chest pain. DNP note has been reviewed, I agree with a documented findings and plan of care. Patient was seen and examined.
[2019-02-27] MEDS: SODIUM CHLORIDE 0.9% 500 ML 500 ML IV SCH (14:12)
[2019-02-28] MEDS ORDERED: ASPIRIN 81 MG PO SCH (09:00)
== END 2019-02-27 16:20 | disposition home or self-care (01) ==
LOC: EC 12:25 → 3SCARD 14:29 → 1SOBS 14:55 → 3SCARD 02-26 10:40
PROVIDERS: ADMIT Internal Medicine; ATTEND Internal Medicine
DX: T82.855A Stenosis of coronary artery stent, initial encounter (principal); Y71.2 Prosthetic and other implants, materials and accessory cardiovascular devices associated with adverse incidents; I25.110 Atherosclerotic heart disease of native coronary artery with unstable angina pectoris; Z71.6 Tobacco abuse counseling; F17.210 Nicotine dependence, cigarettes, uncomplicated; E78.5 Hyperlipidemia, unspecified; I25.2 Old myocardial infarction; Z79.82 Long term (current) use of aspirin; Z79.899 Other long term (current) drug therapy; Z82.49 Family history of ischemic heart disease and other diseases of the circulatory system; Z83.3 Family history of diabetes mellitus
CPT/HCPCS: 96376 ×2; 96366 ×3; 96365; 99285; 36415; 93005; 93306; 93458; 85379; 83880; 80061; 80053; 82150; 82565; 82550; 83690; 83735; 84484 ×2; 85025; 85610; 85730 ×3; 71046; G0378 ×3; C9600; C1769 ×5; C1887; C1725; C1894 ×2; C1760; C1874; J2250; J1170; J1644 ×2; J2001; J3010; J0583; Q9967